=== PATIENT | female | born 1940 | race Caucasian/White ===

== ENCOUNTER 2016-07-20 22:43 | Observation (INO) | payer OTHER ==
[~2016-07-20] VITALS: Ht 160 cm; Wt 58.0 kg
[~2016-07-20 22:43] MED LIST: AMLODIPINE BES2.5 MG PO; BISACODYL SUPP10 MG PR; BISACODYL5 MG PO; HYDROCODON-ACE1 EAC7 PO; LIDOCAINE700 MG TD; METOCLOPRAM5 MG/1 M1 IV; MILK OF MAGNESI10 ML PO; MORPHINE SULFA1 DOSE IV/IM; NITROFURANTOIN50 MG PO; ONDANSETRON4 MG/2 ML IV; PANTOPRAZOLE SO40 MG PO; SENNA-TIME S T1 EACH PO; THERAGRAN1 TABLET PO; TOPROL XL25 MG PO; TYLENOL REGULA325 MG PO
[2016-07-20 23:51] LABS: HEMATOCRIT 40.7 % (36.0-46.0); MCH 30.6 PG (29.0-34.0); MCHC 34.4 G/DL (30.0-36.0); MCV 89.1 FL (83-99); MEAN PLAT.VOLUME 10.4 uM^3 (9.5-12.4); PLATELET COUNT 214 K/uL (156-360); RBC DIS.WIDTH-SD 41.7 % (39-53); RED BLOOD COUNT 4.57 M/uL (3.80-5.20); WHITE BLOOD COUNT 5.7 K/uL (4.1-10.2)
[2016-07-21 00:13] LABS: TROP-I INTERPRETATION NEGATIVE; TROPONIN-I 0.01 ng/mL (0.0-0.30)
[2016-07-21 01:06] LABS: CHLORIDE 109 mEq/L (99-109); POTASSIUM 3.8 mEq/L (3.7-5.4); SODIUM 142 mEq/L (136-147)
[2016-07-21 01:08] LABS: GLUCOSE 106 mg/dL (70-99)
[2016-07-21 01:09] LABS: ANION GAP 10 MEQ/L (2-14)
[2016-07-21 01:12] LABS: GFR ESTIMATE (CALCULATED) > 59 mL/min/
[2016-07-21 01:13] LABS: UREA NITROGEN (BUN) 9 mg/dL (9-23)
[2016-07-21 01:28] LABS: CHLORIDE 108 mEq/L (99-109); POTASSIUM 3.8 mEq/L (3.7-5.4); SODIUM 141 mEq/L (136-147)
[2016-07-21 01:30] LABS: GLUCOSE 104 mg/dL (70-99)
[2016-07-21 01:32] LABS: ANION GAP 10 MEQ/L (2-14)
[2016-07-21 01:35] LABS: UREA NITROGEN (BUN) 9 mg/dL (9-23)
[2016-07-21 02:03] LABS: ADD MIUA? YES; BILIRUBIN NEGATIVE; BLOOD TRACE; COLOR YELLOW ((YELLOW)); GLUCOSE (STRIP) NEGATIVE; KETONES NEGATIVE; LEUKOCYTES NEGATIVE; NITRITE NEGATIVE; PROTEIN (STRIP) NEGATIVE; SPECIFIC GRAVITY 1.012 (1.000-1.030); UROBILINOGEN 0.2 MG/DL (0.2-1.0)
[2016-07-21 02:25] LABS: BACTERIA NONE SEEN /HPF; CASTS NONE SEEN /LPF; CRYSTALS NONE SEEN; EPITHELIAL CELLS RARE /HPF; MUCUS NONE SEEN /LPF; RED BLOOD CELLS RARE /HPF (0-5); UCUL ADDED? NO; WHITE BLOOD CELLS NONE SEEN /HPF (0-5)
[2016-07-21 03:05] LABS: GFR ESTIMATE (CALCULATED) > 59 mL/min/
[2016-07-21 05:08] VITALS: BP 114/57
[2016-07-21 06:40] LABS: HEMATOCRIT 39.7 % (36.0-46.0); MCH 30.9 PG (29.0-34.0); MCHC 34.8 G/DL (30.0-36.0); MEAN PLAT.VOLUME 11.5 uM^3 (9.5-12.4); PLATELET COUNT 184 K/uL (156-360); RBC DIS.WIDTH-CV 13.2 % (11.8-14.6); RBC DIS.WIDTH-SD 42.9 % (39-53); RED BLOOD COUNT 4.46 M/uL (3.80-5.20); WHITE BLOOD COUNT 6.3 K/uL (4.1-10.2)
[2016-07-21 06:59] LABS: TROP-I INTERPRETATION NEGATIVE; TROPONIN-I 0.02 ng/mL (0.0-0.30)
[2016-07-21 08:05] VITALS: BP 111/56
[2016-07-21 08:05] LABS: ANION GAP 11 MEQ/L (2-14); CHLORIDE 111 MEQ/L (99-109); POTASSIUM 3.9 MEQ/L (3.7-5.4); SAMPLE HEMOLYSIS CHECK 0; SAMPLE ICTERIC CHECK 0; SAMPLE LIPEMIA CHECK 0; SODIUM 143 MEQ/L (136-147); TOTAL BILIRUBIN 0.4 MG/DL (0.0-1.0)
[2016-07-21 08:11] LABS: ALKALINE PHOSPHATASE 63 IU/L (3-129); GFR ESTIMATE (CALCULATED) > 59 mL/min/; GLUCOSE 87 mg/dL (70-99); UREA NITROGEN (BUN) 8 mg/dL (9-23)
[2016-07-21 11:15] VITALS: BP 117/65
[2016-07-21 12:20] LABS: TROP-I INTERPRETATION NEGATIVE; TROPONIN-I 0.02 ng/mL (0.0-0.30)
[2016-07-21] MEDS ORDERED: TOPROL XL25 MG PO (12:46)
[2016-07-21] MEDS ORDERED: ACETAMINOPHEN325 M1 PO (12:47)
[2016-07-21] MEDS ORDERED: LO-DOSE ASPIRIN81 M2 PO (12:47)
[2016-07-21] MEDS ORDERED: COQ10-VIT E 101 EACH PO (12:48)
[2016-07-21] MEDS ORDERED: VITAMIN D400 UNIT PO (12:48)
[2016-07-21] MEDS ORDERED: ZINC50 M3 PO (12:49)
[2016-07-21 15:58] VITALS: BP 116/62
== END 2016-07-21 17:27 | disposition home or self-care (01) ==
LOC: EME 22:43 → EDOF 07-21 02:47 → 5WEST 07-21 04:02
PROVIDERS: Emergency Medicine; Internal Medicine
DX: R07.89 Other chest pain (principal); R53.83 Other fatigue; R20.2 Paresthesia of skin; R51 Headache; I10 Essential (primary) hypertension; Z86.73 Personal history of transient ischemic attack (TIA), and cerebral infarction without residual deficits; K21.9 Gastro-esophageal reflux disease without esophagitis; Z88.2 Allergy status to sulfonamides; Z88.1 Allergy status to other antibiotic agents; Z88.8 Allergy status to other drugs, medicaments and biological substances
CPT/HCPCS: 70450; 71020; 80048; 80048 91; 80053; 80069; 81003; 84484; 85027; 93005; 99281; 99284; G0378; J0360

== ENCOUNTER 2016-09-14 23:58 | Emergency (ER) | payer OTHER ==
[~2016-09-14] VITALS: Ht 157.5 cm; Wt 58.2 kg
[~2016-09-14 23:58] MED LIST changes: +ACETAMINOPHEN325 M1 PO; +COQ10-VIT E 101 EACH PO; +LO-DOSE ASPIRIN81 M2 PO; +VITAMIN D400 UNIT PO; +ZINC50 M3 PO
[2016-09-15 00:21] LABS: POINT-OF-CARE METER ID UU13113778
[2016-09-15 00:31] LABS: HEMATOCRIT 41.8 % (36.0-46.0); MCH 29.7 PG (29.0-34.0); MCHC 33.3 G/DL (30.0-36.0); MCV 89.3 FL (83-99); MEAN PLAT.VOLUME 10.3 uM^3 (9.5-12.4); PLATELET COUNT 185 K/uL (156-360); RBC DIS.WIDTH-CV 12.4 % (11.8-14.6); RBC DIS.WIDTH-SD 40.4 % (39-53); RED BLOOD COUNT 4.68 M/uL (3.80-5.20); WHITE BLOOD COUNT 5.3 K/uL (4.1-10.2)
[2016-09-15 00:44] LABS: CHLORIDE 105 mEq/L (99-109); SODIUM 138 mEq/L (136-147)
[2016-09-15 00:46] LABS: GLUCOSE 89 mg/dL (70-99)
[2016-09-15 00:48] LABS: ANION GAP 10 MEQ/L (2-14); TOTAL BILIRUBIN 0.7 mg/dL (0.0-1.0)
[2016-09-15 00:50] LABS: ALKALINE PHOSPHATASE 67 IU/L (3-129); GFR ESTIMATE (CALCULATED) > 59 mL/min/
[2016-09-15 00:51] LABS: UREA NITROGEN (BUN) 7 mg/dL (9-23)
[2016-09-15 01:20] LABS: ADD MIUA? NO; BILIRUBIN NEGATIVE; BLOOD NEGATIVE; COLOR COLORLESS ((YELLOW)); GLUCOSE (STRIP) NEGATIVE; KETONES 5; LEUKOCYTES NEGATIVE; NITRITE NEGATIVE; PROTEIN (STRIP) NEGATIVE; SPECIFIC GRAVITY 1.002 (1.000-1.030); UCUL ADDED? NO; UROBILINOGEN 0.2 MG/DL (0.2-1.0)
[2016-09-15 03:38] LABS: TROP-I INTERPRETATION NEGATIVE; TROPONIN-I 0.02 ng/mL (0.0-0.30)
[2016-09-15] MEDS ORDERED: BENTYL20 MG PO (04:31)
[2016-09-15 05:00] VITALS: BP 137/62
== END 2016-09-15 05:05 | disposition home or self-care (01) ==
LOC: EME 23:58
DX: R10.9 Unspecified abdominal pain (principal); I10 Essential (primary) hypertension; Z79.82 Long term (current) use of aspirin; Z88.1 Allergy status to other antibiotic agents; Z88.2 Allergy status to sulfonamides; Z88.8 Allergy status to other drugs, medicaments and biological substances; Z88.7 Allergy status to serum and vaccine
CPT/HCPCS: 80053; 81003; 82948; 84484; 85027; 93005; 99281; 99285